=== PATIENT | female | born 1955 | race Caucasian/White ===

== ENCOUNTER 2018-08-06 07:58 | Day surgery (SDC) | payer OTHER, SELFPAY ==
[2018-08-06] VITALS (9 sets, daily range): BP systolic 107–155; BP diastolic 64–90; PULSE 82–94; RESP 12–18; TEMP 36.1–37.3; O2SAT 98–100; BMI 36.6
[2018-08-06] MEDS: SODIUM CHLORIDE 0.9% 1,000 ML 200 ML IV (10:15)
--- NOTE | 2018-08-06 11:37 | PM.HP.1 ---
History of Present Illness Date Patient Seen: 08/06/18 Time Patient Seen: 11:37 Chief complaint: [id number] Colonoscopy Narrative: Very pleasant 62-year-old lady who presents today for her 1st screening colonoscopy. She denies any problems or symptoms related to the function of her GI tract. She reports she needs colonoscopy as part of a health maintenance program. Patient History Family & Social History Family History: Reviewed 08/06/18 by Gabriela Mckeon MD Social History: household members spouse Meds Home Medications Medication Instructions Recorded Confirmed Type levothyroxine [Synthroid] 50 mcg PO QDAY@0600 #0 12/17/11 08/06/18 History Allergies Allergy/AdvReac Type Severity Reaction Status Date / Time No Known Allergies Allergy Uncoded 10/29/17 11:50 Review of Systems Review of Systems All systems reviewed & are unremarkable except as noted in HPI and below Exam Vital Signs (past 8 hours): - 08/06/18 09:33 Temperature 97.3 F L Pulse Rate 90 Respiratory Rate 15 Blood Pressure 155/90 H Pulse Oximetry 99 Oxygen Delivery Method Room Air Narrative Exam Narrative: Well-nourished well-developed lady in no distress HEENT: Normocephalic and atraumatic, pupils equal round reactive to light accommodation with anicteric sclera Lungs: Clear bilaterally Heart: Regular rate and rhythm Abdomen: Soft, nontender, active bowel sounds Extremities: Warm and well perfused without edema Assessment & Plan Plan: Assessment/Plan Narrative: Pleasant and healthy 62-year-old lady here for screening colonoscopy. We discussed the risks and benefits of the procedure the patient expressed a desire to complete it today
[2018-08-06] MEDS: fentaNYL 250 MCG/5 ML INJ IV (11:44)
[2018-08-06] MEDS: MIDAZOLAM 5 MG/5 ML VIAL IV (11:45)
--- NOTE | 2018-08-06 12:06 | PM.OP.1 ---
Operative Date/Time/Diagnoses Date of procedure: 08/06/18 Time of procedure: 12:06 Pre-op diagnosis: Screening Post-op diagnosis: same Procedure & Clinicians Procedure: Colonoscopy to the cecum Same procedure as scheduled: Yes Indications: No prior colonoscopy Surgeon: Gabriela Mckeon Anesthesia Type: Sedation (Versed 10 mg; fentanyl 300 mcg) Operative Notes Findings: 1. Excellent prep 2. No polyps or mass lesions 3. No AV malformations 4. Mild sigmoid diverticulosis 5. Mildly tortuous transverse colon 6. Grade 2 internal hemorrhoids Closure Type: not applicable Specimen(s): none sent Procedure in detail: After obtaining informed consent, the patient was brought to the GI suite and placed in the left lateral decubitus position on the examination table. After placement of appropriate monitors, the patient was given incremental doses of Versed and Fentanyl until an appropriate level of sedation was achieved. A time out was held per SCOAP protocol. A digital rectal examination was performed and did not reveal any masses or obstructing lesions. The colonoscope was gently passed into the patient's anus and the entire colon navigated to the level of the cecum with minimal difficulty. Once in the cecum, the scope was withdrawn being sure to go before and beyond all mucosal folds and prominences and get an excellent examination. The findings are noted above. At the level of the rectal vault, the scope was retroflexed and the internal anal canal was examined. The scope was straightened and air aspirated from the colon. The instrument was removed from the patient's body and the procedure was concluded. The patient was allowed to awaken from sedation without difficulty and taken to the post-anesthesia care unit in good condition. Total sedation time was 23 min Total withdrawal time was 12 min and 2 sec Complications: none Condition: stable Disposition: PACU Plan for aftercare: 1. Discharge to home 2. Plan for next colonoscopy in 10 years or as clinically indicated
== END 2018-08-06 13:41 ==
LOC: ENDO 08:01
PROVIDERS: PCP Internal Medicine; Visit Provider Surgery
PROC: 0DJD8ZZ Inspection of Lower Intestinal Tract, Via Natural or Artificial Opening Endoscopic (ICD-10-PCS; CPT 45378; principal; 2018-08-06 10:45)
DX: Z12.11 Encounter for screening for malignant neoplasm of colon (principal); K57.30 Diverticulosis of large intestine without perforation or abscess without bleeding; K64.1 Second degree hemorrhoids
CPT/HCPCS: 45378; 99152; J2250; J3010

== ENCOUNTER 2020-08-04 13:51 | Emergency (ER) | payer OTHER, SELFPAY ==
[2020-08-04 14:11] VITALS: BP 174/78; PULSE 96; RESP 20; TEMP 37; O2SAT 97
[2020-08-04 15:33] LABS: Bacteria Urine None Seen; RBC Urine None Seen (0-5/HPF)
[2020-08-04 15:37] LABS: Appearance Urine UA CLEAR; Bilirubin Urine UA NEGATIVE (NEGATIVE); Color Urine UA YELLOW; Glucose Urine UA NEGATIVE (Negative); Ketones Urine UA NEGATIVE (NEGATIVE); Leukocyte Esterase Urine UA NEGATIVE (NEGATIVE); Nitrite Urine UA NEGATIVE (Negative); Occult Blood Urine UA NEGATIVE (Negative); Protein Urine UA NEGATIVE (Negative); Urobilinogen Urine UA 0.2 E.U./dL (0.2)
[2020-08-04 15:37] LABS: Add Manual Diff / Slide Review NO; Basophils Absolute Auto 100 /uL (0-100); Eosinophils Absolute Auto 100 /uL (0-450); Eosinophils Percent Auto 2.1 % (2-4); Hematocrit 40.3 % (36-46); Hemoglobin 13.3 g/dL (12.0-16.0); Lymphocytes Absolute Auto 1300 /uL (1100-4500); Lymphocytes Percent Auto 23.2 % (25-40); Mean Corpuscular HGB Conc 33.1 % (30-36); Mean Corpuscular Hemoglobin 28.5 PG (26-34); Monocytes Absolute Auto 400 /uL (0-900); Monocytes Percent Auto 8.1 % (3-14); Neutrophils Absolute Auto 3600 /uL (1500-7000); Neutrophils Percent Auto 65.6 % (50-75); Platelet Count 162 X10^3/uL (150-400); Red Blood Cell Count 4.69 X10^6/uL (4.0-5.2); Red Cell Distribution Width 14.8 % (11.6-14.8); White Blood Cell Count 5.4 X10^3/uL (4.5-11.0)
[2020-08-04 15:52] LABS: Culture Indicated Urine Cult Not Indicated; Squamous Epithelial Cell Urine 0-1 /HPF (0-5/HPF); WBC Urine 0-1/HPF (0-5/HPF)
[2020-08-04 15:57] LABS: Amylase 122 U/L (30-110); BUN Creatinine Ratio 19.8 (6-22); Blood Urea Nitrogen 18 mg/dL (7-17); Calcium 9.8 mg/dL (8.4-10.2); Carbon Dioxide 32 mmol/L (22-32); Chloride 107 mmol/L (98-107); Estimated Glomerular Filt Rate > 60.0 mL/min (>60); Glucose 94 mg/dL (80-110); HEMOLYSIS 21 (0-50); Lactate (Lactic Acid) 0.5 mmol/L (0.7-2.1); Lipase 187 U/L (23-300); Potassium 4.2 mmol/L (3.4-5.1); Sodium 141 mmol/L (137-145)
--- NOTE | 2020-08-04 16:02 | ED.ABDPAIN ---
HPI - Abdominal Pain <GENE Kirkland - Last Filed: 08/04/20 17:29> General Chief Complaint: Abdominal Pain Stated Complaint: pain in left side Time Seen by Provider: 08/04/20 15:24 Source: patient Mode of arrival: Ambulatory Limitations: no limitations History of Present Illness HPI narrative: The patient is a 64-year-old female never smoker with history of hypothyroid who takes Synthroid daily who presents with a chief complaint of left-sided flank pain radiating around to her left upper quadrant. This is been ongoing for approximately 1 week. She was seen and evaluated the walk-in clinic, who took an x-ray and told her that she was constipated. She was started on MiraLax. Subsequently she does complain of stool changes and states that her stool is ?pencil thin.She denies any dysuria urgency or frequency. She states that the pain comes and goes and spikes. No nausea vomiting or diarrhea. She went back to the walk-in clinic in [place] today who referred her to the emergency department hoping that she could get imaging beyond x-ray today. She denies any fevers muscle aches or chills. She states that the pain is debilitating at times, but she is not taking anything other than MiraLax for this. Related Data Home Medications Medication Instructions Recorded Confirmed levothyroxine [Synthroid] 50 mcg PO QDAY@0600 #0 12/17/11 05/02/20 Previous Rx's Medication Instructions Recorded cyclobenzaprine 10 mg tablet 10 mg PO BID #20 tab 05/02/20 Allergies Allergy/AdvReac Type Severity Reaction Status Date / Time No Known Allergies Allergy Uncoded 10/29/17 11:50 Review of Systems <GENE Kirkland - Last Filed: 08/04/20 17:29> Review of Systems Narrative: GENERAL: Denies chills, fatigue, malaise, fever, sweats. HEENT: Denies sinus pain, ear pain, sore throat, difficulty swallowing, dizziness. RESPIRATORY: Denies dyspnea, cough, wheezing, hemoptysis, sputum. CARDIOVASCULAR: Denies chest pain, palpitations, orthopnea, edema, GASTROINTESTINAL: See HPI : Denies dysuria, frequency, incontinence, hematuria, urinary retention. MUSCULOSKELETAL: denies weakness, joint pain, or bony pain SKIN: Denies rash, skin lesions, or other NEUROLOGIC: Denies weakness, headache, numbness, change in speech, confusion, seizures, incoordination. PSYCHIATRIC: No concerning psychosocial issues. 12 point review of systems is negative except for those stated above Patient History <GENE Kirkland - Last Filed: 08/04/20 17:29> Medical History (Updated 08/04/20 @ 16:37 by GENE Kirkland) Hypothyroid Left shoulder pain Social History household members: spouse Smoking Status: Never smoker Smoking Status: Never smoker Exam <GENE Kirkland - Last Filed: 08/04/20 17:29> Narrative Exam Narrative: GENERAL: This is a well-nourished, well-developed patient, in no acute distress HEAD: Atraumatic. Normocephalic. No temporal or scalp tenderness. EYES: Pupils equal round and reactive. Extraocular motions intact. No scleral icterus. No injection or drainage. ENT: Nose without bleeding, purulent drainage or septal hematoma. Wearing a mask Airway patent. NECK: Trachea midline. No JVD or lymphadenopathy. Supple, nontender, no meningeal signs. CARDIOVASCULAR: Regular rate and rhythm RESPIRATORY: Clear to auscultation. Breath sounds equal bilaterally. No wheezes, rales, or rhonchi. No cough. No increased respiratory effort. No accessory muscle use. GASTROINTESTINAL: Abdomen soft, non-tender, nondistended. Active bowel sounds all 4 quadrants. Generalized pain to palpation left upper quadrant, left lower quadrant EXTREMITIES: No clubbing, cyanosis, or edema. No joint tenderness, effusion, or edema noted. BACK: Nontender without deformity or crepitance. Slight flank tenderness on left side NEURO: AOx3. SKIN: No rash or erythema on visible skin Initial Vital Signs Initial Vital Signs: Vital Signs Temperature 98.6 F 08/04/20 14:11 Pulse Rate 96 H 08/04/20 14:11 Respiratory Rate 20 08/04/20 14:11 Blood Pressure 174/78 H 08/04/20 14:11 Pulse Oximetry 97 08/04/20 14:11 <Tereza Rico MD - Last Filed: 08/05/20 07:47> Initial Vital Signs Initial Vital Signs: Vital Signs Temperature 98.6 F 08/04/20 14:11 Pulse Rate 96 H 08/04/20 14:11 Respiratory Rate 20 08/04/20 14:11 Blood Pressure 174/78 H 08/04/20 14:11 Pulse Oximetry 97 08/04/20 14:11 Scores <Maria De Jesus GENE Florez - Last Filed: 08/04/20 17:29> GCS [place] coma scale eye opening: Spontaneous [place] coma scale verbal response: Orientated Daniela coma scale motor response: Obey commands Daniela coma scale total score: 15 Course <Maria De Jesus ROQUE Florez - Last Filed: 08/04/20 17:29> Orders Ordered: ED Orders 08/04/20 15:10 Urinalysis and Microscopic Stat 08/04/20 15:31 Amylase Stat BMP [Basic Metabolic Panel] Stat Complete Blood Count AUTO DIFF Stat Lactate (Lactic Acid) Stat Lipase Stat 08/04/20 16:22 CT abdomen pelvis w con Stat Vital Signs Vital signs: Vital Signs - 8 hr 08/04/20 14:11 Temperature 98.6 F Pulse Rate 96 H Respiratory Rate 20 Blood Pressure 174/78 H Pulse Oximetry 97 <Tereza Rico MD - Last Filed: 08/05/20 07:47> Orders Ordered: ED Orders 08/04/20 15:10 Urinalysis and Microscopic Stat 08/04/20 15:31 Amylase Stat BMP [Basic Metabolic Panel] Stat Complete Blood Count AUTO DIFF Stat Lactate (Lactic Acid) Stat Lipase Stat 08/04/20 16:22 CT abdomen pelvis w con Stat Vital Signs Vital signs: Vital Signs - 8 hr 08/04/20 14:11 Temperature 98.6 F Pulse Rate 96 H Respiratory Rate 20 Blood Pressure 174/78 H Pulse Oximetry 97 MDM - Abdominal Pain <ROQUE Kirkland - Last Filed: 08/04/20 17:29> Lab Data Attestation: I reviewed the patient's lab results. Result diagrams: 08/04/20 15:31 08/04/20 15:31 Labs: Lab Results 08/04/20 08/04/20 08/04/20 Range/Units 15:10 15:31 15:31 WBC 5.4 (4.5-11.0) X10^3/uL RBC 4.69 (4.0-5.2) X10^6/uL Hgb 13.3 (12.0-16.0) g/dL Hct 40.3 (36-46) % MCV 86.0 (80-100) fL MCH 28.5 (26-34) PG MCHC 33.1 (30-36) % RDW 14.8 (11.6-14.8) % Plt Count 162 (150-400) X10^3/uL Neut % (Auto) 65.6 (50-75) % Lymph % (Auto) 23.2 L (25-40) % [place] % (Auto) 8.1 (3-14) % Eos % (Auto) 2.1 (2-4) % Baso % (Auto) 1.0 (0-2) % Neut # (Auto) 3600 (8697-7574) /uL Lymph # (Auto) 1300 (3202-9475) /uL [place] # (Auto) 400 (0-900) /uL Eos # (Auto) 100 (0-450) /uL Baso # (Auto) 100 (0-100) /uL Sodium 141 (137-145) mmol/L Potassium 4.2 (3.4-5.1) mmol/L Chloride 107 (98-107) mmol/L Carbon Dioxide 32 (22-32) mmol/L BUN 18 H (7-17) mg/dL Creatinine 0.91 (0.52-1.04) mg/dL Estimated GFR > 60.0 (>60) mL/min BUN/Creatinine Ratio 19.8 (6-22) Glucose 94 (80-110) mg/dL Lactate (0.7-2.1) mmol/L Calcium 9.8 (8.4-10.2) mg/dL Amylase (30-110) U/L Lipase (23-300) U/L Urine Color Yellow Urine Appearance Clear Urine pH 6.0 (4.5-8.0) Ur Specific [place] 1.010 (1.000-1.035) Urine Protein Negative (Negative) Urine Glucose (UA) Negative (Negative) g/dL Urine Ketones Negative (NEGATIVE) Urine Occult Blood Negative (Negative) Urine Nitrate Negative (Negative) Urine Bilirubin Negative (NEGATIVE) Urine Urobilinogen 0.2 (0.2) E.U./dL Ur Leukocyte Esterase Negative (NEGATIVE) Urine RBC None seen (0-5/HPF) Urine WBC 0-1/hpf (0-5/HPF) Ur Squamous Epith Cells 0-1 /hpf (0-5/HPF) Urine Bacteria None seen (None) Ur Culture Indicated? Cult not indicated 08/04/20 08/04/20 Range/Units 15:31 15:31 WBC (4.5-11.0) X10^3/uL RBC (4.0-5.2) X10^6/uL Hgb (12.0-16.0) g/dL Hct (36-46) % MCV (80-100) fL MCH (26-34) PG MCHC (30-36) % RDW (11.6-14.8) % Plt Count (150-400) X10^3/uL Neut % (Auto) (50-75) % Lymph % (Auto) (25-40) % [place] % (Auto) (3-14) % Eos % (Auto) (2-4) % Baso % (Auto) (0-2) % Neut # (Auto) (3458-2068) /uL Lymph # (Auto) (6204-1174) /uL [place] # (Auto) (0-900) /uL Eos # (Auto) (0-450) /uL Baso # (Auto) (0-100) /uL Sodium (137-145) mmol/L Potassium (3.4-5.1) mmol/L Chloride (98-107) mmol/L Carbon Dioxide (22-32) mmol/L BUN (7-17) mg/dL Creatinine (0.52-1.04) mg/dL Estimated GFR (>60) mL/min BUN/Creatinine Ratio (6-22) Glucose (80-110) mg/dL Lactate 0.5 L (0.7-2.1) mmol/L Calcium (8.4-10.2) mg/dL Amylase 122 H (30-110) U/L Lipase 187 (23-300) U/L Urine Color Urine Appearance Urine pH (4.5-8.0) Ur Specific [place] (1.000-1.035) Urine Protein (Negative) Urine Glucose (UA) (Negative) g/dL Urine Ketones (NEGATIVE) Urine Occult Blood (Negative) Urine Nitrate (Negative) Urine Bilirubin (NEGATIVE) Urine Urobilinogen (0.2) E.U./dL Ur Leukocyte Esterase (NEGATIVE) Urine RBC (0-5/HPF) Urine WBC (0-5/HPF) Ur Squamous Epith Cells (0-5/HPF) Urine Bacteria (None) Ur Culture Indicated? Imaging Data CT scan - abdomen/pelvis: Radiologist's Impression: [address] [id number] Scan ReportSigned Patient: Riana Campbell MMR#: [id number]: [id number]/Sex: 64 / FDate of Service: 08/04/20Loc: EDAccession Number: [id number] Procedure: CT abdomen pelvis w con Ordering Provider: Maria De Jesus Florez [employer] PROCEDURE: CT ABDOMEN PELVIS W CON INDICATIONS: left flank and abd pain TECHNIQUE: After the administration of intravenous contrast, 5 mm thick sections acquired from the diaphragm to the symphysis. 5 mm coronal and sagittal reformats were acquired. For radiation dose reduction, the following was used: automated exposure control, adjustment of mA and/or kV according to patient size. COMPARISON: None. FINDINGS: Image quality: Excellent. ABDOMEN: Lung bases: Lung bases are clear. Heart size is normal. Solid organs: There is diffuse hypoattenuation of the liver consistent with fatty infiltration. The gallbladder demonstrates dependent calcified gallstones without wall thickening or pericholecystic fluid. Biliary system is non-dilated. Pancreas enhances normally. No peripancreatic fat stranding or fluid collections. No pancreatic duct dilatation. The spleen is normal in size. No adrenal nodules. Kidneys demonstrate no hydronephrosis. Peritoneum and bowel: Bowel loops demonstrate normal wall thickness and caliber. The appendix is normal in appearance. There are few colonic diverticula without acute diverticulitis. No free fluid or air. Nodes and vessels: No retroperitoneal or mesenteric adenopathy by size criteria. Aorta and inferior vena cava are normal in size. Miscellaneous: No ventral hernias. PELVIS: Genitourinary: Bladder wall thickness is normal. Miscellaneous: No inguinal hernias or adenopathy. Bones: No suspicious bony lesions. No vertebral body compression fractures. IMPRESSION: 1. No definite acute intra-abdominal abnormality. Specifically, no evidence of acute diverticulitis or obstructive uropathy. 2. Hepatic steatosis. Dictated by: Magdaleno Tyler M.D. on 08/04/2020 at 16:57 Approved by: Magdaleno Tyler M.D. on 08/04/2020 at 16:59 [facility] Narrative Medical decision making narrative: The patient is a 64-year-old female who presents with a chief complaint of left-sided flank radiating around to abdominal pain. She has been seen at a walk-in clinic multiple times. She does complain of stool changes. She does have grossly normal lab work, but given her repeated visits sign concerns, will obtain imaging to help rule out colitis, renal stone. Imaging results with no acute findings. I encouraged the patient to follow up with primary care provider in the next few days as well as come back to the emergency department for any acute concerns such as abdominal pain with fever, inability keep down fluids etcetera. Patient has been have no questions or concerns upon discharge and state understanding of return precautions as well as follow-up care. <Tereza Rico MD - Last Filed: 08/05/20 07:47> Lab Data Labs: Lab Results 08/04/20 08/04/20 08/04/20 Range/Units 15:10 15:31 15:31 WBC 5.4 (4.5-11.0) X10^3/uL RBC 4.69 (4.0-5.2) X10^6/uL Hgb 13.3 (12.0-16.0) g/dL Hct 40.3 (36-46) % MCV 86.0 (80-100) fL MCH 28.5 (26-34) PG MCHC 33.1 (30-36) % RDW 14.8 (11.6-14.8) % Plt Count 162 (150-400) X10^3/uL Neut % (Auto) 65.6 (50-75) % Lymph % (Auto) 23.2 L (25-40) % [place] % (Auto) 8.1 (3-14) % Eos % (Auto) 2.1 (2-4) % Baso % (Auto) 1.0 (0-2) % Neut # (Auto) 3600 (5542-6987) /uL Lymph # (Auto) 1300 (3921-5560) /uL [place] # (Auto) 400 (0-900) /uL Eos # (Auto) 100 (0-450) /uL Baso # (Auto) 100 (0-100) /uL Sodium 141 (137-145) mmol/L Potassium 4.2 (3.4-5.1) mmol/L Chloride 107 (98-107) mmol/L Carbon Dioxide 32 (22-32) mmol/L BUN 18 H (7-17) mg/dL Creatinine 0.91 (0.52-1.04) mg/dL Estimated GFR > 60.0 (>60) mL/min BUN/Creatinine Ratio 19.8 (6-22) Glucose 94 (80-110) mg/dL Lactate (0.7-2.1) mmol/L Calcium 9.8 (8.4-10.2) mg/dL Amylase (30-110) U/L Lipase (23-300) U/L Urine Color Yellow Urine Appearance Clear Urine pH 6.0 (4.5-8.0) Ur Specific [place] 1.010 (1.000-1.035) Urine Protein Negative (Negative) Urine Glucose (UA) Negative (Negative) g/dL Urine Ketones Negative (NEGATIVE) Urine Occult Blood Negative (Negative) Urine Nitrate Negative (Negative) Urine Bilirubin Negative (NEGATIVE) Urine Urobilinogen 0.2 (0.2) E.U./dL Ur Leukocyte Esterase Negative (NEGATIVE) Urine RBC None seen (0-5/HPF) Urine WBC 0-1/hpf (0-5/HPF) Ur Squamous Epith Cells 0-1 /hpf (0-5/HPF) Urine Bacteria None seen (None) Ur Culture Indicated? Cult not indicated 08/04/20 08/04/20 Range/Units 15:31 15:31 WBC (4.5-11.0) X10^3/uL RBC (4.0-5.2) X10^6/uL Hgb (12.0-16.0) g/dL Hct (36-46) % MCV (80-100) fL MCH (26-34) PG MCHC (30-36) % RDW (11.6-14.8) % Plt Count (150-400) X10^3/uL Neut % (Auto) (50-75) % Lymph % (Auto) (25-40) % [place] % (Auto) (3-14) % Eos % (Auto) (2-4) % Baso % (Auto) (0-2) % Neut # (Auto) (5682-4476) /uL Lymph # (Auto) (9653-5265) /uL [place] # (Auto) (0-900) /uL Eos # (Auto) (0-450) /uL Baso # (Auto) (0-100) /uL Sodium (137-145) mmol/L Potassium (3.4-5.1) mmol/L Chloride (98-107) mmol/L Carbon Dioxide (22-32) mmol/L BUN (7-17) mg/dL Creatinine (0.52-1.04) mg/dL Estimated GFR (>60) mL/min BUN/Creatinine Ratio (6-22) Glucose (80-110) mg/dL Lactate 0.5 L (0.7-2.1) mmol/L Calcium (8.4-10.2) mg/dL Amylase 122 H (30-110) U/L Lipase 187 (23-300) U/L Urine Color Urine Appearance Urine pH (4.5-8.0) Ur Specific [place] (1.000-1.035) Urine Protein (Negative) Urine Glucose (UA) (Negative) g/dL Urine Ketones (NEGATIVE) Urine Occult Blood (Negative) Urine Nitrate (Negative) Urine Bilirubin (NEGATIVE) Urine Urobilinogen (0.2) E.U./dL Ur Leukocyte Esterase (NEGATIVE) Urine RBC (0-5/HPF) Urine WBC (0-5/HPF) Ur Squamous Epith Cells (0-5/HPF) Urine Bacteria (None) Ur Culture Indicated? Discharge Plan Departure Patient Disposition: Home Clinical Impression: Acute flank pain Abdominal pain Qualifiers: Abdominal location: generalized Qualified Code(s): R10.84 - Generalized abdominal pain Instructions: DI for Abdominal Pain-Adult, DI for Flank Pain Activity Restrictions/Additional Instructions: Thank you for trusting us with your care today. As discussed, your urine does not show any signs of infection. Your lab work came back very reassuring. Please follow-up with primary care provider in the next few days. As discussed please come back to the emergency department for any acute concerns such as abdominal pain with fever, inability keep down fluids, concern of heart attack or stroke. Prescriptions: No Action cyclobenzaprine 10 mg tablet 10 mg PO BID Qty: 20 RF: 0 levothyroxine [Synthroid] 50 MCG tablet 50 mcg PO QDAY@0600 Qty: 0 RF: 0 Referrals: Belem Lopez ARNP [Primary Care Provider] - <Tereza Rico MD - Last Filed: 08/05/20 07:47> Cosign ED Attending Cosignature Attestation: I was immediately available in the department for consultation throughout this patient's visit. I agree with documentation as above. Tereza Rico MD
--- NOTE | 2020-08-04 16:22 | DI.CT.S_ITS ---
PROCEDURE: CT ABDOMEN PELVIS W CON INDICATIONS: left flank and abd pain TECHNIQUE: After the administration of intravenous contrast, 5 mm thick sections acquired from the diaphragm to the symphysis. 5 mm coronal and sagittal reformats were acquired. For radiation dose reduction, the following was used: automated exposure control, adjustment of mA and/or kV according to patient size. COMPARISON: None. FINDINGS: Image quality: Excellent. ABDOMEN: Lung bases: Lung bases are clear. Heart size is normal. Solid organs: There is diffuse hypoattenuation of the liver consistent with fatty infiltration. The gallbladder demonstrates dependent calcified gallstones without wall thickening or pericholecystic fluid. Biliary system is non-dilated. Pancreas enhances normally. No peripancreatic fat stranding or fluid collections. No pancreatic duct dilatation. The spleen is normal in size. No adrenal nodules. Kidneys demonstrate no hydronephrosis. Peritoneum and bowel: Bowel loops demonstrate normal wall thickness and caliber. The appendix is normal in appearance. There are few colonic diverticula without acute diverticulitis. No free fluid or air. Nodes and vessels: No retroperitoneal or mesenteric adenopathy by size criteria. Aorta and inferior vena cava are normal in size. Miscellaneous: No ventral hernias. PELVIS: Genitourinary: Bladder wall thickness is normal. Miscellaneous: No inguinal hernias or adenopathy. Bones: No suspicious bony lesions. No vertebral body compression fractures. IMPRESSION: 1. No definite acute intra-abdominal abnormality. Specifically, no evidence of acute diverticulitis or obstructive uropathy. 2. Hepatic steatosis. Dictated by: Magdaleno Tyler M.D. on 08/04/2020 at 16:57 Approved by: Magdaleno Tyler M.D. on 08/04/2020 at 16:59
== END 2020-08-04 17:31 | disposition home or self-care (01) ==
PROVIDERS: Nurse Practitioner Family; Emergency Provider Emergency Medicine; PCP Nurse Practitioner
DX: R10.84 Generalized abdominal pain (principal); E03.9 Hypothyroidism, unspecified
CPT/HCPCS: 36415; 74177; 80048; 81001; 82150; 83605; 83690; 85025; 99281; 99284; Q9967

== ENCOUNTER → 2020-12-04 17:02 | Outpatient (CLI) | payer OTHER, SELFPAY ==
--- NOTE | 2020-12-04 17:04 | DI.MG.S_ITS ---
BILATERAL DIGITAL SCREENING MAMMOGRAM 3D/2D WITH CAD: 12/04/2020 CLINICAL: Routine screening. Comparison is made to exams dated: 03/23/2019 mammogram, 03/16/2018 mammogram, and 03/06/2017 mammogram - outside location. There are scattered fibroglandular elements in both breasts. Current study was also evaluated with a Computer Aided Detection (CAD) system. There are benign calcifications in the left breast. No significant masses, calcifications, or other findings are seen in either breast. There has been no significant interval change. IMPRESSION: BENIGN There is no mammographic evidence of malignancy. A 1 year screening mammogram is recommended. This exam was interpreted at Station ID: [id number]. NOTE: For mammograms, a report in lay terms will be sent to the patient. Approximately 15% of breast malignancies will not be visualized mammographically. In the management of a palpable breast mass, a negative mammogram must not discourage biopsy of a clinically suspicious lesion. Electronically Signed By: Eleni elliott/joaquin:12/05/2020 08:35:28 letter sent: Normal Exam ACR BI-RADS Category 2: Benign Finding(s) 3342F
== END ==
PROVIDERS: PCP Nurse Practitioner; Referring Provider Nurse Practitioner; Visit Provider Nurse Practitioner
DX: Z12.31 Encounter for screening mammogram for malignant neoplasm of breast (principal)
CPT/HCPCS: 77063; 77067

== ENCOUNTER → 2022-10-16 17:03 | Outpatient (CLI) | payer MEDICARE, OTHER, SELFPAY ==
--- NOTE | 2022-10-16 17:06 | DI.RAD.S_ITS ---
PROCEDURE: XR KNEE RT 3V INDICATIONS: Knee pain TECHNIQUE: 3 views of the knee were acquired. COMPARISON: None. FINDINGS: Bones: No fractures or dislocations. Sdfj-tu-[id number] tricompartmental osteoarthritis is seen most notably in medial femoral tibial compartment. No suspicious bony lesions. Soft tissues: No joint effusion. No suspicious soft tissue calcifications. IMPRESSION: [id number] tricompartmental osteoarthritis in right knee. No acute fracture or dislocation. No significant joint effusion. Dictated by: Cedrick Lucas M.D. on 10/17/2022 at 9:37 Approved by: Cedrick Lucas M.D. on 10/17/2022 at 9:38
== END ==
PROVIDERS: PCP Nurse Practitioner; Referring Provider Nurse Practitioner Family; Visit Provider Nurse Practitioner Family
DX: S86.911A Strain of unspecified muscle(s) and tendon(s) at lower leg level, right leg, initial encounter (principal); M17.11 Unilateral primary osteoarthritis, right knee; X58.XXXA Exposure to other specified factors, initial encounter
CPT/HCPCS: 73562